=== PATIENT | male | born 1965 | race Caucasian/White ===

== ENCOUNTER 2017-10-10 14:14 | Inpatient (IN) | payer OTHER ==
[~2017-10-10] VITALS: Ht 170.2 cm; Wt 72.6 kg
[2017-10-10 17:06] LABS: *AMPHETAMINE, URINE NEGATIVE (NEGATIVE); *BARBITURATE, URINE NEGATIVE (NEGATIVE); *CANNABINOID, URINE NEGATIVE (NEGATIVE); *COCCAINE, URINE NEGATIVE (NEGATIVE); *OPIATE, URINE NEGATIVE (NEGATIVE); *PHENCYCLIDINE SCREEN,URINE NEGATIVE (NEGATIVE)
--- NOTE | 2017-10-10 17:15 | NUR ---
Pre-admission assessment performed in the intake department of [facility]. Pt admitted for medically supervised ETOH withdrawal. Pt is A&O and ambulatory with a steady gait. Pt appears slightly intoxicated, some slurred speech. He is able to answers questions appropriately. Vitals: 151/91, HR 94, RR 18, O2 sat 98%, T 98.0, pain 0/10. Pt is anxious, flushed face, disheveled and blood shot eyes. Pt is stable and admission is to continue on the [facility]. Denies seizure history and Pt reports NKA.
[2017-10-10] MEDS ORDERED: LORAZEPAM 1 MG TABLET PO PRN ×2 (17:30)
[2017-10-10] MEDS ORDERED: LOPERAMIDE HCL 2 MG CAPSULE PO PRN ×2 (17:30)
[2017-10-10] MEDS ORDERED: diphenhydrAMINE 50 MG CAPSULE PO PRN (17:30)
[2017-10-10] MEDS ORDERED: MAG HYDROX/AL HYDROX/SIMETH 30 ML LIQUID UDC PO PRN (17:30)
[2017-10-10] MEDS ORDERED: ACETAMINOPHEN 325 MG TABLET PO PRN (17:30)
[2017-10-10] MEDS ORDERED: LORAZEPAM 2 MG/1 ML VIAL IM PRN (17:30)
[2017-10-10] MEDS ORDERED: ONDANSETRON 4 MG/2 ML VIAL IM PRN (17:30)
[2017-10-10] MEDS ORDERED: MAGNESIUM HYDROXIDE 30 ML LIQUID UDC PO PRN (17:30)
[2017-10-10] MEDS ORDERED: MIRALAX 17 GM POWD.PACK PO PRN (17:30)
[2017-10-10] MEDS ORDERED: THIAMINE HCL 200 MG/2 ML VIAL IM ONE (17:30)
--- NOTE | 2017-10-10 17:40 | NUR ---
ADMISSION Pt is a 52 y/o male who arrived on the [facility] at 1733. Body check performed by TACK MAKER and skin check performed by the nurse. Pt was oriented to the unit and shown to his room. Pt is A&O and ambulatory with a steady gait. He has NKA, is full code status, and on a regular diet. Pt is 5'7", weight 150 pounds. Lung sounds clear, PERRLA, bowel sounds present, heart rhythm regular, skin is intact. Last BM was this morning. Pt has been drinking 8 cans of beer daily for 22 years. Pt began drinking ETOH at age [age]. His last drink was 7 beers today at 1530 prior to admission. Pt reports he drinks because he is bored and has too much time to himself. He wants to get sober because his family and girlfriend encouraged him. Possible triggers for relapse are too much time with nothing to do and his mother bothers him. He lives with his mother. Barriers for staying sober are lack of activities and isolation. Pt tried to get sober two times. In 1997 at [facility] and 2014 at [facility]. His longest period of sobriety was 3 months in 2014. Withdrawal symptoms typically include are anxiety, sweating, and joint pain. Pt decided to come to treatment today because "It's time". Pt denies c/o suicidal ideations or homicidal ideations. No history of psychiatric admissions or suicide attempts. No history of seizures or withdrawal induced deliriums. His primary care physician is Dr. Cm. H- insomnia. Otherwise healthy. Pt daily medications are Trazodone 150 mg PO QHS and Gabapentin 500 mg Po QHS. He was educated regarding use of the call light and all questions answered. All safety measures in place, bed low locked position, side rails up X2, Fall Precautions.
--- NOTE | 2017-10-10 18:07 | NUR ---
weight 160 pounds. Admitting CIWA 3
[2017-10-10] MEDS ORDERED: TRAZ-182 PO (18:11)
[2017-10-10] MEDS ORDERED: GABA600T2 PO (18:11)
[2017-10-10] MEDS ORDERED: PANT40TA4 PO (18:11)
[2017-10-10] MEDS ORDERED: ASPI-973 PO (18:16)
--- NOTE | 2017-10-10 18:31 | NUR ---
End of shift No withdrawal changes since admission. Admission assessment completed. CIWA 3. Pt reports NKA, Full Code and regular diet. All safety measures in place. Bed low, locked position, side rails upx2, call light is within reach. Will continue to monitor for withdrawal symptoms. Will endorse to PM shift.
--- NOTE | 2017-10-10 19:30 | NUR ---
START OF SHIFT Pt is a 52 y/o male admitted on 10/10/17 for ETOH withdrawal. Pt will start a 5 day Ativan taper tomorrow, has PRN Ativan available at this time. Last CIWA 3. Upon rounds Pt is A&O x 4 and presents with anxiety, agitation, intermittent nausea, tremors, flushed skin, restlessness, poor eye contact, slumped posture and difficulty falling and staying asleep. Medications due. Safety measures in place. Call light within reach. Will continue to monitor.
[2017-10-10] MEDS: CLONIDINE HCL 0.1 MG TABLET PO PRN (19:49)
[2017-10-10] MEDS: ONDANSETRON ODT 4 MG TAB.RAPDIS SL PRN (19:50)
--- NOTE | 2017-10-10 19:50 | NUR ---
PRN CLONIDINE AND ZOFRAN ADMINISTRATION Pt presents with B/P of 150/88 and complains of nausea. Medication given. Safety measures in place. Call light within reach. Will continue to monitor.
[2017-10-10 20:00] VITALS: BP 150/88
--- NOTE | 2017-10-10 20:00 | NUR ---
CIWA 14 Pt presents with intermittent nausea, tremors, flushed skin, moderate anxiety, and moderate agitation. Safety measures in place. Call light within reach. Will continue to monitor.
[2017-10-10 20:31] LABS: BASOPHILS # (AUTO) 0.1 K/uL (0.0-8.0); BASOPHILS % (AUTO) 1.1 % (0.0-2.0); EOSINOPHILS # (AUTO) 0.6 K/uL (0.0-0.7); EOSINOPHILS % (AUTO) 5.4 % (0.0-7.0); HEMATOCRIT 42.5 % (36.7-47.1); LYMPHOCYTES # (AUTO) 2.6 K/uL (20.0-40.0); LYMPHOCYTES % (AUTO) 24.8 % (20.5-51.5); MEAN CORPUSCULAR HEMOGLOBIN 34.7 uug (23.8-33.4); MEAN CORPUSCULAR HGB CONC 35 g/dL (32.5-36.3); MEAN CORPUSCULAR VOLUME 98.2 fL (73.0-96.2); MONOCYTES # (AUTO) 0.9 K/uL (2.0-10.0); MONOCYTES % (AUTO) 8.9 % (0.0-11.0); NEUTROPHILS # (AUTO) 6.3 K/uL (1.8-8.9); NEUTROPHILS % (AUTO) 59.8 % (38.5-71.5); PLATELET COUNT (AUTO) 205 K/uL (152-348); RED BLOOD CELL COUNT(AUTO) 4.33 MIL/uL (4.06-5.63); WHITE BLOOD COUNT (AUTO) 10.5 K/uL (3.6-10.2)
[2017-10-10 20:32] LABS: ETHANOL < 3 MG/DL (0-0)
[2017-10-10 20:37] LABS: ALANINE AMINOTRANSFERASE 95 U/L (16-63); ALKALINE PHOSPHATASE 97 U/L (50-136); AMYLASE 64 U/L (25-115); ASPARTATE AMINOTRANSFERASE 114 U/L (15-37); BILIRUBIN,TOTAL 1.5 mg/dL (0.2-1.0); CARBON DIOXIDE 24 mmol/L (21-32); CHLORIDE 98 mmol/L (98-107); CREATININE 0.9 mg/dL (0.6-1.3); GLUCOSE 104 mg/dL (74-106); LIPASE 109 U/L (73-393); MAGNESIUM 2.1 mg/dL (1.8-2.4); POTASSIUM 3.1 mmol/L (3.5-5.1); TOTAL PROTEIN, SERUM 8.3 g/dL (6.4-8.2); UREA NITROGEN, BLOOD 5 mg/dL (7-18)
[2017-10-10 20:48] LABS: THYROID STIMULATING HORMONE 2.427 mIU/mL (0.358-3.740)
[2017-10-10] MEDS ORDERED: TRAZODONE 100 MG TABLET PO ONE (21:00)
[2017-10-10] MEDS: GABAPENTIN 300 MG CAPSULE PO SCH (21:07)
--- NOTE | 2017-10-10 21:08 | NUR ---
PRN ATIVAN 1 MG AND TYLENOL ADMINISTRATION Pt complaining of anxiety, restlessness, tremors, and headache 06/15. CIWA 14. Medications given. Safety measures in place. Call light within reach. Will continue to monitor.
[2017-10-10] MEDS ORDERED: POTASSIUM CHLORIDE 20 MEQ TAB.PRT.SR PO ONE (21:30)
--- NOTE | 2017-10-10 21:50 | NUR ---
PRN CLONIDINE AND ZOFRAN REASSESSMENT Pt stated the nausea has improved and feels better. Zofran noted effective. Pt's B/P 154/91. Pt stated that he is anxious, agitated, and restless. Clonidine noted not effective, charge nurse notified.
--- NOTE | 2017-10-10 22:08 | NUR ---
PRN ATIVAN 1MG AND TYLENOL REASSESSMENT Pt found in bed with eyes closed. Pt's respirations are even and unlabored. CIWA 6. Medications noted effective. Safety measures in place. Call light within reach. Will continue to monitor.
[2017-10-11] VITALS: BP 96/61
--- NOTE | 2017-10-11 | NUR ---
CIWA 8 Pt presents with intermittent nausea, tremors, flushed skin, moderate anxiety, and moderate agitation. Safety measures in place. Call light within reach. Will continue to monitor.
--- NOTE | 2017-10-11 04:00 | NUR ---
CIWA DEFERRED AND V/S REFUSED Pt laying in bed with eyes closed, respirations even and unlabored. CIWA deferred. V/S refused. Safety measures in place. Call light within reach. Will continue to monitor.
--- NOTE | 2017-10-11 06:58 | NUR ---
PRN IMODIUM ADMINISTRATION Pt stated he has 1 bout of diarrhea. Medication was administered. Safety measures in place. Call light within reach. Will endorse to morning nurse.
--- NOTE | 2017-10-11 07:13 | NUR ---
END OF SHIFT Pt is a 52 y/o male admitted on 10/10/17 for ETOH withdrawal. Pt will start a 5 day Ativan taper today. Pt presented with anxiety, agitation, intermittent nausea, tremors, flushed skin, restlessness, elevated blood pressure, elevated heart rate, poor eye contact, slumped posture, difficulty falling and staying asleep and 1 bout of diarrhea. PRN Ativan, Neurontin, Imodium, Clonidine, Tylenol, and Zofran ODT was administered, effective in S/S of withdrawal AEB Pt sleeping 9.5 hours . Also 40 mEq of K-Dur was administered d/t K of 3.1. Last CIWA 8. Pt slept 9.5 hours. Intake 855 ml, void 2, stool 0. Safety measures in place. Call light within reach. Pt's needs have been met.
--- NOTE | 2017-10-11 07:40 | NUR ---
START OF SHIFT NOTE Received report from night nurse, 52 year old male admitted for ETOH withdrawal. Patient ordered to be start Ativan taper today. Per endorsement patient received PRN Ativan 1mg, Tylenol, Robaxin, Clonidine, Zofran, Imodium effective per night nurse, Last CIWA -8, slept for 9 hours. Received patient alert awake anxious, agitated, restless bilateral hand tremors noted. Educated patient regarding the importance of attending groups activities. Patient verbalized understanding. All safety measures in place, Call light within reach. Will cont to monitor.
[2017-10-11 08:00] VITALS: BP 147/93
--- NOTE | 2017-10-11 08:00 | NUR ---
CIWA ASSESSMENT Patient is alert awake oriented x4 presented with anxiety, agitation, restless, bilateral hand tremors, light headed. sweats, CIWA score noted 13. Patient is due for schedule medications. Will cont to monitor and reassess.
[2017-10-11] MEDS: THIAMINE HCL 100 MG TABLET PO SCH (08:55)
[2017-10-11] MEDS: FOLIC ACID 1 MG TABLET PO SCH (08:55)
[2017-10-11] MEDS: LORAZEPAM 1 MG TABLET PO SCH ×4 (08:55→20:51)
[2017-10-11] MEDS: MULTIVITAMINS,THERAPEUTIC TABLET PO SCH (08:55)
[2017-10-11] MEDS ORDERED: TUBERCULIN,PURIF.PROT.DERIV. 5 TU/0.1 ML TEST ID ONE (09:00)
[2017-10-11] MEDS ORDERED: 5 DAY TAPER OF LORAZEPAM -SERENITY PROTOCOL PO PRN (09:00)
--- NOTE | 2017-10-11 10:00 | NUR ---
CLARIFICATION DRINKING HISTORY Patient stated for the past 2 and half years he is been drinking 8-10 beers from Wednesday to , and 12 to 14 on Wednesday, Wednesday and Wednesday. Patient started drinking at age of [age] year old. Patient has been drinking daily since that time expect 3 periods of sobriety the longest been 6 months. The most recent period of sobriety was in 2014 for 3 months. For most of his drinking history he been drinking 8-10 beers daily for 4-6 months. Many years ago had a history of drinking hard liquor (Vodka 90to 100ml). Patient states" The reason for relapse is hearing the people talking about drinking and using drugs at AA meeting. At the meeting people told me i was not drinking a lot after hearing that i started drinking more on the weekends. " Patient stated he wants to get sober this time because its really affecting his work and a lot of new project is coming and he is very excited for it. Per patient he has a fridge in this office with beer in it and that leads him to drink at work. Patient states he is going to tell his work that take the fridge out from his office.Patient States he wants to stay sober for his girlfriend and specially for his health.
[2017-10-11] MEDS: PANTOPRAZOLE SODIUM 40 MG TABLET.DR PO SCH (11:47)
[2017-10-11 12:00] VITALS: BP 142/91
--- NOTE | 2017-10-11 12:00 | NUR ---
CIWA ASSESSMENT Patient is alert awake oriented x4 presented with anxiety, agitation, restless, bilateral hand tremors, pacing in the hallway. sweats, CIWA score noted 14. Patient is due for schedule medications. Will cont to monitor and reassess.
[2017-10-11 16:00] VITALS: BP 141/89
--- NOTE | 2017-10-11 16:00 | NUR ---
CIWA ASSESSMENT Patient continues presented with anxiety, agitation, restless, anhedonia, bilateral hand tremors, sweats, CIWA score noted 14. Patient is due for schedule medications. Will cont to monitor and reassess.
--- NOTE | 2017-10-11 19:03 | NUR ---
END OF SHIFT NOTE Gave report to night nurse, patient admitted for ETOH and started his Ativan taper this morning tolerating well. Patient presented with anxiety, agitation, restless, sweats, bilateral hand tremors. Patient continues with Ativan taper tolerating well. During shift patient did not receive any PRN'S, PPD was given on LFA no s/s of bleeding no swelling noted. Skin intact warm and dry to touch. Encourage patient to attend group activities to learn new coping skills. Patient verbalized understanding. Encourage PO fluids as tolerated. All safety measures in place, Call light within reach. Patient endorsed to night nurse in stable condition.
--- NOTE | 2017-10-11 19:30 | NUR ---
Start of shift note Received report from day shift Nurse. Patient is a 52 year old male admitted for ETOH withdrawal. Patient is on 5 day Ativan taper,started today. PPD given on left forearm. Patient did not require PRN medication. Last CIWA 13. Patient alert and oriented x 4. Respiration even and unlabored. Room smell . Patient presents with flat affect, depressed mood, worried, flushed face, anxious, headache 4/10, both feet aching 8/10, back pain, restless legs, intermittent perspiration and diarrhea. Safety measures in place. Call light in reach. Will continue to monitor
[2017-10-11 20:00] VITALS: BP 140/92
--- NOTE | 2017-10-11 20:00 | NUR ---
CIWA assessment Patient presents flushed face, anxious, restless, worried, headache 4/10, both feet aching 8/10, back pain, restless legs, intermittent perspiration and diarrhea. CIWA 13.
[2017-10-11] MEDS: IBUPROFEN 600 MG TABLET PO PRN (20:51)
[2017-10-11] MEDS: GABAPENTIN 300 MG CAPSULE PO SCH (20:51)
--- NOTE | 2017-10-11 20:51 | NUR ---
PRN Motrin administration Patient c/o generalized body aches. Will monitor for effectiveness
[2017-10-11] MEDS: TRAZODONE 100 MG TABLET PO SCH (20:52)
--- NOTE | 2017-10-11 21:51 | NUR ---
PRN Motrin re-assessment Patients states Motrin is helpful and effective. Pain is tolerable at this time
[2017-10-12] VITALS: BP 123/68
--- NOTE | 2017-10-12 | NUR ---
CIWA deferred Patient in bed with eyes closed, snoring. Respiration even and unlabored. Will continue to monitor.
[2017-10-12 04:00] VITALS: BP 119/75
--- NOTE | 2017-10-12 04:00 | NUR ---
CIWA deferred Patient lying in bed with eyes closed. Respiration even and unlabored. Will continue to monitor
[2017-10-12] MEDS: PANTOPRAZOLE SODIUM 40 MG TABLET.DR PO SCH (06:34)
--- NOTE | 2017-10-12 07:15 | NUR ---
End of shift note Patient slept 7 hours .Fluid intake 1,092 ml. Voided x 2. BM x 3 . Monitored patient throughout shift. Scheduled medication and taper given as ordered, tolerated well and no adverse reaction. Patient alert and oriented x 4. Respiration even and unlabored. Room smell . Patient presents with flat affect, depressed mood, worried, flushed face, anxious, headache 4/10, both feet aching 8/10, back pain, restless legs, intermittent perspiration and diarrhea. Encouraged fluids. Patiend had diarrhea but does not want PRN imodium. Patient was given PRN motrin and effective. Safety measures in place. Call light in reach. Will continue to monitor. Last .
--- NOTE | 2017-10-12 07:30 | NUR ---
START OF SHIFT NOTE Received report from night nurse, 52 year old male admitted for ETOH withdrawal. Patient continues with Ativan taper tolerating well. Per endorsement patient received PRN Motrin effective per night nurse, Last , slept for 7 hours. Received patient alert awake oriented x4, light headed, anxious, agitated, restless, diaphoresis, bilateral hand tremors noted. Educated patient regarding the importance of attending groups activities. Patient verbalized understanding. All safety measures in place, Call light within reach. Will cont to monitor.
[2017-10-12 08:00] VITALS: BP 134/94
--- NOTE | 2017-10-12 08:00 | NUR ---
CIWA ASSESSMENT Patient is alert awake oriented x4 presented with anxiety, agitation, restless, bilateral hand tremors, light headed, sweats, fatigue, CIWA score noted 13. Patient is due for schedule medications. Will cont to monitor and reassess.
[2017-10-12 08:06] LABS: HEPATITIS B SURFACE AG Negative (Negative)
[2017-10-12] MEDS: MULTIVITAMINS,THERAPEUTIC TABLET PO SCH (08:14)
[2017-10-12] MEDS: FOLIC ACID 1 MG TABLET PO SCH (08:15)
[2017-10-12] MEDS: LORAZEPAM 1 MG TABLET PO SCH ×3 (08:15→20:35)
[2017-10-12] MEDS: THIAMINE HCL 100 MG TABLET PO SCH (08:15)
[2017-10-12 08:59] LABS: BILIRUBIN,TOTAL 0.5 mg/dL (0.2-1.0); POTASSIUM 3.8 mmol/L (3.5-5.1); TOTAL PROTEIN, SERUM 7.2 g/dL (6.4-8.2)
[2017-10-12 12:00] VITALS: BP 142/82
--- NOTE | 2017-10-12 12:00 | NUR ---
CIWA ASSESSMENT Patient continues to exhibit with anxiety, agitation, restless, bilateral hand tremors, light headed, sweats, fatigue, CIWA score noted 14. Patient is due for schedule medications. Will cont to monitor and reassess.
--- NOTE | 2017-10-12 13:43 | NUR ---
Client was prompted to attend group therapy sessions.
[2017-10-12 16:00] VITALS: BP 138/92
--- NOTE | 2017-10-12 16:00 | NUR ---
CIWA ASSESSMENT Patient came back from groups and continues to exhibit with anxiety, agitation, restless, bilateral hand tremors, light headed, patient reported decreased in sweats, fatigue, CIWA score noted 13. Will cont to monitor and reassess.
--- NOTE | 2017-10-12 19:17 | NUR ---
END OF SHIFT NOTE Gave report to night nurse, Patient is alert oriented x4 admitted for ETOH withdrawal and continues with Ativan taper tolerating well. Patient presented with anxiety, agitation, restless, flat affect, flushed face, patient was given scheduled medications and no PRN'S were given during shift. Patient did not have any episode of diarrhea during shift. Patient able to consumed 100% of his meals, encourage PO fluids as tolerated. All safety measures in place. Patient endorsed to night nurse in stable condition.
--- NOTE | 2017-10-12 19:30 | NUR ---
Start of shift note Received report from day shift Nurse. Patient is a 52 year old male admitted for ETOH withdrawal. Patient continue on Ativan taper. Patient did not require PRN medication . Last CIWA 13. Patient alert and oriented x 4. Patient presents with flat affect, anxiety, flushed face, abdominal cramping, restless legs, diarrhea, sweating , bilateral hand tremors and pain on back , ankle and legs. Encourage fluids. Safety measures in place. Call light in reach. Will continue to monitor.
[2017-10-12 20:00] VITALS: BP 147/98
--- NOTE | 2017-10-12 20:00 | NUR ---
CIWA assessment Patient presents with flat affect, anxiety, flushed face, abdominal cramping, restless legs, diarrhea, sweating , bilateral hand tremors , nausea and pain on back , ankle and legs. CIWA 13
[2017-10-12] MEDS: GABAPENTIN 300 MG CAPSULE PO SCH (20:35)
[2017-10-12] MEDS: TRAZODONE 100 MG TABLET PO SCH (20:35)
[2017-10-12] MEDS: DICYCLOMINE HCL 20 MG TABLET PO PRN (20:36)
[2017-10-12] MEDS: ONDANSETRON ODT 4 MG TAB.RAPDIS SL PRN (20:36)
--- NOTE | 2017-10-12 20:36 | NUR ---
PRN Bentyl and Zofran assessment Patient c/o abdominal cramping and nausea.Will monitor for effectiveness
--- NOTE | 2017-10-12 21:06 | NUR ---
PRN Zofran re-assessment Patient states Zofran helpful and effective. Nausea ceased.
--- NOTE | 2017-10-12 21:36 | NUR ---
ANTONELLA Jaimes re-assessment Patient states he feels much better, abdominal cramping subsided.
[2017-10-13] VITALS: BP 121/88
--- NOTE | 2017-10-13 | NUR ---
CIWA deferred Patient lying in bed with eyes closed. Respiration even and unlabored. Will continue to monitor
[2017-10-13 04:00] VITALS: BP 120/78
--- NOTE | 2017-10-13 04:00 | NUR ---
CIWA assessment Patient presents with anxiety, restlessness, tremors, sweating , abdominal cramping and restless legs. CIWA 10.
[2017-10-13] MEDS: DICYCLOMINE HCL 20 MG TABLET PO PRN (04:43)
[2017-10-13] MEDS: IBUPROFEN 600 MG TABLET PO PRN (04:43)
--- NOTE | 2017-10-13 04:43 | NUR ---
PRN Motrin and Bentyl administration Patient c/o restless legs and abdominal cramping. Will monitor for effectiveness
--- NOTE | 2017-10-13 05:43 | NUR ---
PRN Derrick and Fiona re-assessment Patient lying in bed with eyes closed. Respiration even and unlabored. No facial grimacing. Will continue to monitor
[2017-10-13] MEDS: PANTOPRAZOLE SODIUM 40 MG TABLET.DR PO SCH (06:25)
--- NOTE | 2017-10-13 07:12 | NUR ---
End of shift note Patient slept 5 hours. Fluid intake of 1,592 ml. Voided x 2. BM x 1. Scheduled medication and taper given as ordered, tolerated well and no adverse reaction. Patient was c/o restless legs, nausea, abdominal cramping and anxiety. PRN Motrin, Zofran, Bentyl x 2. Patient with flat affect and depressed mood. Patient compliant medication and treatment plan. Safety measures in place. Call light in reach. Will continue to monitor. Last CIWA 10.
--- NOTE | 2017-10-13 07:40 | NUR ---
START OF SHIFT NOTE Received report from night nurse, 52 year old male admitted for ETOH withdrawal. Patient continues with Ativan taper tolerating well. Per endorsement patient received PRN Motrin, Zofran, Bentyl x2, effective per night nurse, Last CIWA -, slept for 5 hours. Received patient alert awake oriented x4, anxious, agitated, restless, bilateral hand tremors noted. Educated patient with current plan of the day and his medications regimen. Patient verbalized understanding. All safety measures in place, Call light within reach. Will cont to monitor.
[2017-10-13 08:00] VITALS: BP 139/89
--- NOTE | 2017-10-13 08:00 | NUR ---
CIWA ASSESSMENT CIWA score noted 13. Patient presented with anxiety, agitation, restless, bilateral hand tremors, light headed, restless legs, muscle spasms. Patient due for scheduled medications. Will cont to monitor and reassess.
[2017-10-13] MEDS: MULTIVITAMINS,THERAPEUTIC TABLET PO SCH (08:27)
[2017-10-13] MEDS: THIAMINE HCL 100 MG TABLET PO SCH (08:27)
[2017-10-13] MEDS: LORAZEPAM 1 MG TABLET PO SCH ×4 (08:27→20:51)
[2017-10-13] MEDS: FOLIC ACID 1 MG TABLET PO SCH (08:27)
[2017-10-13 12:00] VITALS: BP 150/91
--- NOTE | 2017-10-13 12:00 | NUR ---
CIWA ASSESSMENT CIWA score noted 14. Patient continues to exhibited s/s of withdrawal such as anxiety, agitation, restless, bilateral hand tremors, light headed, restless legs, nausea. Scheduled medication was given. Will cont to monitor.
--- NOTE | 2017-10-13 13:11 | NUR ---
Client was prompted to attend twice daily group therapy sessions and client agreed to do so.
[2017-10-13 16:00] VITALS: BP 147/94
--- NOTE | 2017-10-13 16:00 | NUR ---
CIWA ASSESSMENT CIWA score noted 12. Patient continues to exhibited s/s of withdrawal such as anxiety, agitation, restless, bilateral hand tremors, per patient nausea improved and light headed decreased. Scheduled medication was given. Will cont to monitor.
--- NOTE | 2017-10-13 16:00 | NUR ---
MD Communication Pt's PPD is >10mm. He is asymptomatic and stated that he received the TB vaccine when he was younger. made aware. New orders for chest x-ray.
[2017-10-13 17:03] LABS: CREATININE 0.9 mg/dL (0.6-1.3); POTASSIUM 4.4 mmol/L (3.5-5.1)
[2017-10-13 17:08] LABS: *BILIRUBIN,URIN NEGATIVE (NEGATIVE); *BLOOD, URINE NEGATIVE (NEGATIVE); *CLARITY,URINE CLEAR (CLEAR); *COLOR,URINE YELLOW (YELLOW); *KETONES,URINE NEGATIVE (NEGATIVE); *PROTEIN,URINE NEGATIVE (NEGATIVE); *UROBILINOGEN,URINE 0.2 E.U./dl (NORMAL); LEUKOCYTE ESTERASE ,URINE NEGATIVE (NEGATIVE); NITRITE, URINE NEGATIVE (NEGATIVE); UGLUCOSE NEGATIVE (NEGATIVE)
[2017-10-13 18:18] LABS: WBC,URINE 0-3 /HPF (0-3)
--- NOTE | 2017-10-13 19:00 | NUR ---
START OF SHIFT NOTE The patient, 52 year old male, admitted for Alcohol withdrawal, continues 5 day Ativan taper, today is day #4. The patient tolerated well. The patient is alert, and oriented x4, cooperative, with clear, soft speech, and steady gait. The most recent CIWA=12 at 1600. Throughout the day the patient experienced withdrawal symptoms such as anxiety, agitation, irritability, nervousness, headache, nausea, tremors, sweating, restlessness, and fatigue, per day shift nurse report. Encouraged increased oral fluids as tolerated. Encouraged to attending group activities. Safe and calm environment provided. All needs met. Safety measures: Call light within reach, bed locked in lowest position, padded bed rails up x2. The patient endorsed by day shift nurse. Will continue to monitor closely. endorsed by day shift nurse. Will continue to monitor closely.
--- NOTE | 2017-10-13 19:00 | NUR ---
END OF SHIFT NOTE Gave report to night nurse, Patient is alert oriented x4 admitted for ETOH withdrawal and continues with Ativan taper tolerating well. Patient presented with anxiety, agitation, restless, flat affect, light headed,unkempt,sweats. Patient was given scheduled medications and no PRN'S were given during shift. Patient able to consumed 100% of his meals, encourage PO fluids as tolerated for hydration. Patient noted interacting with peers and attending groups activities. All safety measures in place. Patient endorsed to night nurse in stable condition.
[2017-10-13 20:00] VITALS: BP 134/89
--- NOTE | 2017-10-13 20:00 | NUR ---
CIWA ASSESSMENT CIWA=11 at 2000: The patient presented with anxiety, agitation, irritability, tremors, body aches, sweating, restlessness, and fatigue. Scheduled medications will be administrated as ordered. Safe and calm environment with minimized noises was provided. All needs met. Safety measures: Call light within reach, bed locked in the lowest position, and padded rails up x2. Withdrawal symptoms will be monitoring closely.
[2017-10-13] MEDS: TRAZODONE 100 MG TABLET PO SCH (20:51)
[2017-10-13] MEDS: GABAPENTIN 300 MG CAPSULE PO SCH (20:51)
[2017-10-14] VITALS: BP 102/56
--- NOTE | 2017-10-14 | NUR ---
CIWA ASSESSMENT CIWA=10 at 0000. The patient experienced withdrawal symptoms such as anxiety, agitation, irritability, nervousness, sweating, tremors, body aches, restlessness, and fatigue. Scheduled medications will be administrated as ordered. Safe and calm environment with minimized noises was provided. All needs met. Safety measures: Call light within reach, bed locked in the lowest position, and padded rails up x2. Withdrawal symptoms will be monitoring closely.
[2017-10-14 04:00] VITALS: BP 112/63
--- NOTE | 2017-10-14 04:00 | NUR ---
CIWA ASSESSMENT CIWA=9 at 0400: The patient experienced anxiety, agitation, irritability, tremors, body aches, sweating, restlessness,and fatigue. Safe and calm environment with minimized noises was provided. All needs met. Safety measures: Call light within reach, bed locked in the lowest position, and padded rails up x2. Withdrawal symptoms will be monitoring closely.
[2017-10-14] MEDS: PANTOPRAZOLE SODIUM 40 MG TABLET.DR PO SCH (06:14)
--- NOTE | 2017-10-14 07:00 | NUR ---
END OF SHIFT NOTE Endorsed patient, 52 year old male, is alert, and oriented x4, cooperative, with clear, soft speech, and steady gait. The patient continues 5 day Ativan taper, today is day #5, ordered for Alcohol withdrawal, tolerated well. The patient remains compliant with treatment, medications, and diet regime. Initial CIWA=11 at 2000, CIWA=10 at 0000. The most recent CIWA=9 at 0400. The patient experienced anxiety, agitation, irritability, nervousness, body aches, headache, tremors, sweating, restlessness, and fatigue. No PRN Medications administrated due my shift. Encouraged increased oral fluids as tolerated. Encouraged to attending group activities. Safe and calm environment provided. Patient slept for 7 hours, intake1,092 ml, voided x2. All needs met. Safety measures in the place by hospital policy: Call light within reach, bed in the lowest position and locked, padded rails up x2. Patient endorsed to day shift nurse in stable condition, report given.
--- NOTE | 2017-10-14 07:40 | NUR ---
START OF SHIFT Pt is a 52 yr old male, AA&Ox4. Pt was admitted on 10/10/17 for ETOH withdrawal and is on 5 day Ativan taper as ordered. Received report from manufacturing shift supervisor nurse. No PRN's were given during the night. Last CIWA score was 9 and pt slept for 7 hrs. Pt is currently c/o anxiety. Pt is noted restless and insisting on going to the smoking patio to smoke. Facial redness is noted. Skin is intact. warm and moist to touch. Pt was encouraged increase fluid for hydration. Safety precautions observed. Call light is within reach. Will continue to monitor.
[2017-10-14 08:05] VITALS: BP 136/93
[2017-10-14] MEDS: FOLIC ACID 1 MG TABLET PO SCH (08:58)
[2017-10-14] MEDS: LORAZEPAM 1 MG TABLET PO SCH ×3 (08:58→21:20)
[2017-10-14] MEDS: MULTIVITAMINS,THERAPEUTIC TABLET PO SCH (08:58)
[2017-10-14] MEDS: THIAMINE HCL 100 MG TABLET PO SCH (08:58)
--- NOTE | 2017-10-14 09:15 | NUR ---
CIWA 10 Pt is noted with anxiety, agitation, restlessness and facial sweats. Pt states of feeling nervous. CIWA score was 10. Ativan 1mg PO was given as scheduled at 0900, medication roberto well. Encouraged increase fluid intake for hydration. Will continue to monitor.
[2017-10-14 12:00] VITALS: BP 149/98
--- NOTE | 2017-10-14 12:00 | NUR ---
CIWA 9 Pt is noted with anxiety, agitation, restlessness and facial sweats. Pt is noted with constantly going down to smoke. CIWA score was 9. Encouraged increase fluid intake for hydration. Will continue to monitor.
[2017-10-14 16:00] VITALS: BP 157/94
--- NOTE | 2017-10-14 16:43 | NUR ---
PRN GIVEN Pt is c/o constipation. Miralax 17gm was given PO PRN and mix with prune juice to help with constipation. Medication roberto well. Encouraged increase fluid intake. Will continue to monitor.
--- NOTE | 2017-10-14 17:11 | NUR ---
CIWA 9 Pt is noted with anxiety, agitation, restlessness and facial sweats. Pt states of feeling nervous. Pt is noted with constantly going down to smoke. CIWA score was 9. Encouraged increase fluid intake for hydration. Will continue to monitor.
--- NOTE | 2017-10-14 19:02 | NUR ---
END OF SHIFT Pt is a 52 yr old male, AA&Ox4. Pt was admitted on 10/10/17 for ETOH w/d and is on 5 day Ativan taper as ordered, medication roberto well. Pt has been cooperative with medication regimen and plan of care. Pt was observed attending group therapy. Pt was c/o anxiety, agitation, chills, sweats, and muscle aching. Pt is noted with facial redness and sweats. Pt is c/o constipation, Miralax PO PRN was given at 1643. Pt denies any episodes of BM. Pt was encouraged increase fluid for hydration. Last CIWA score was 9 at 1600. Safety precautions observed. Endorsed to restaurant shift supervisor nurse to continue with care.
--- NOTE | 2017-10-14 19:30 | NUR ---
Start of Shift Patient received. Patient is noted in the activities room participating in a group meeting. Patient continues on a modified Ativan taper. Patient was noted to verbalize increased feelings of constipation. PRN Miralax administered. No BM noted. Last noted CIWA 9. Upon rounds patients room is noted to be disheveled and unkept. Multiple bottles of water and snacks noted throughout bedside table. Will continue to monitor.
[2017-10-14 20:30] VITALS: BP 140/95
[2017-10-14] MEDS: GABAPENTIN 300 MG CAPSULE PO SCH (21:19)
[2017-10-14] MEDS: DICYCLOMINE HCL 20 MG TABLET PO PRN (21:20)
[2017-10-14] MEDS: TRAZODONE 100 MG TABLET PO SCH (21:20)
[2017-10-14] MEDS: IBUPROFEN 600 MG TABLET PO PRN (21:20)
--- NOTE | 2017-10-14 21:20 | NUR ---
PRN Medication Administration Patient noted verbalizing increased stomach cramps and pain 6/10 due to headache. Patient is able to verbalize PRN Miralax was noted to be effective. PRN Bentyl and Motrin administered. Will continue to monitor.
--- NOTE | 2017-10-14 22:20 | NUR ---
PRN Medication Reassessment Patient is noted in bed sleeping. Breathing even and non labored. No signs of restlessness or discomfort noted. No facial grimacing noted. PRN Bentyl and Motrin noted to be effective. Will continue to monitor.
[2017-10-15 00:25] VITALS: BP 126/79
[2017-10-15 04:53] VITALS: BP 116/74
[2017-10-15] MEDS: PANTOPRAZOLE SODIUM 40 MG TABLET.DR PO SCH (06:22)
--- NOTE | 2017-10-15 06:59 | NUR ---
End of Shift Patient is noted in bed with his eyes closed. Breathing even and non labored. No signs of restlessness or discomfort noted. patient is continues on a modified Ativan taper. He received PRN Bentyl and Motrin with medications noted to be effective. Last noted CIWA 13. Patient noted to sleep a total of 8 hours. All needs attended to promptly. Will endorse to continue plan of care as ordered.
--- NOTE | 2017-10-15 07:30 | NUR ---
Start of Shift Farm Or Ranch Animal Caretaker received report on 52 year old male admitted to [facility] on 10/10/17 for medical management of ETOH withdrawals. Pt endorse NKA, full code and regular diet. Denies any PMH with a PPH of insomnia. Pt with no reported history of seizures. Pt is currently on an Ativan taper with last CIWA 13 per NOC report. Pt was administered Bentyl(stomach cramps) and Motrin(pain) on NOC for PRN medications. Farm Or Ranch Animal Caretaker encounters pt in pt's room, pt is resting with eyes closed and rise and fall of chest noted. Even and unlabored respirations. Bed in low position with wheels locked and side rails up x2. Will continue to monitor, support and encourage according to plan of care.
--- NOTE | 2017-10-15 08:00 | NUR ---
CIWA 12 Pt is tremulous, anxious, restless with moist skin and complains of nausea. Pt with a flat affect and depressed mood. Will continue to monitor, support and encourage according to plan of care
[2017-10-15 08:26] VITALS: BP 132/94
[2017-10-15] MEDS: FOLIC ACID 1 MG TABLET PO SCH (08:43)
[2017-10-15] MEDS: MULTIVITAMINS,THERAPEUTIC TABLET PO SCH (08:43)
[2017-10-15] MEDS: LORAZEPAM 1 MG TABLET PO SCH ×2 (08:43→20:38)
[2017-10-15] MEDS: THIAMINE HCL 100 MG TABLET PO SCH (08:43)
[2017-10-15 12:00] VITALS: BP 145/93
--- NOTE | 2017-10-15 12:00 | NUR ---
CIWA 10 Pt is tremulous with moist skin. Pt is anxious and restless. Pt with a blunted affect and depressed mood. Pt is quiet and withdrawn. Will continue to monitor, support and encourage according to plan of care.
[2017-10-15] MEDS: CLONIDINE HCL 0.1 MG TABLET PO PRN (14:55)
--- NOTE | 2017-10-15 14:55 | NUR ---
PRN Clonidine Pt complains of sweating palms, chills and anxiety. Pt administered medication per MD order with pt tolerating well. Will continue to monitor, support and encourage according to plan of care.
--- NOTE | 2017-10-15 15:55 | NUR ---
PRN Clonidine Pt states his anxiety and sweats have ceased. Will continue to monitor, support and encourage according to plan of care.
[2017-10-15 16:30] VITALS: BP 152/101
--- NOTE | 2017-10-15 16:30 | NUR ---
CIWA 10 Pt is tremulous, diaphoretic, anxious and restless. Pt with complaints of anxiety, chills and sweats. Will continue to monitor, support and encourage according to plan of care.
--- NOTE | 2017-10-15 19:11 | NUR ---
End of Shift Utility Service Worker provided report on 52 year old male admitted to [facility] on 10/10/17 for medical management of ETOH withdrawals. Pt endorse NKA, full code and regular diet. Denies any PMH with a PPH of insomnia. Pt with no reported history of seizures. Pt is currently on an Ativan taper with last CIWA 10. Pt was administered Clonidine(anxiety, chills) for PRN medications. Pt is isolative and withdrawn to self. Pt isolates in room. A/O x4 and able to makes needs known. Linear thought process and clear speech pattern. Pt is anxious and restless and tremulous, with complaints of chills and sweats. Bed in low position with wheels locked and side rails up x2.
--- NOTE | 2017-10-15 19:30 | NUR ---
Start of Shift Patient Received. Patient is noted in the activities room participating in a group meeting. Per endorsement, patient continues on a modified Ativan taper. He was noted with elevated blood pressure and received PRN Clonidine with medication endorsed to be effective. Last noted CIWA 10. All needs attended to promptly. Will endorse to continue plan of care as ordered.
[2017-10-15] MEDS ORDERED: HYDROXYZINE PAMOATE 25 MG CAPSULE PO PRN (20:30)
[2017-10-15 20:37] VITALS: BP 147/95
[2017-10-15] MEDS: GABAPENTIN 300 MG CAPSULE PO SCH (20:38)
[2017-10-15] MEDS: TRAZODONE 100 MG TABLET PO SCH (20:38)
[2017-10-16 00:20] VITALS: BP 121/76
[2017-10-16 04:26] VITALS: BP 117/65
[2017-10-16] MEDS: PANTOPRAZOLE SODIUM 40 MG TABLET.DR PO SCH (06:38)
--- NOTE | 2017-10-16 07:12 | NUR ---
End of Shift Patient is in bed with eyes closed. Breathing even and non labored. Patient has completed a modified Ativan taper. No PRN medications administered. Last noted CIWA 15. He was noted with increased anxiety and restlessness. Ordered medication was noted to be effective. He was noted to sleep a total of 9 hours. All needs attended to promptly. Will endorse to continue plan of care as ordered.
[2017-10-16 08:00] VITALS: BP 131/87
--- NOTE | 2017-10-16 08:10 | NUR ---
START OF SHIFT: Received Pt A/O X 4. He presents with anxious mood and restricted affect. He reports anxiety and restlessness. He has completed Ativan taper. CIWA 7. Offered PRN Vistaril for anxiety but states he would like to see if he can manage without medication. Educated him on deep breathing exercises to ease anxiety.He states he slept well and has a good appetite. Encouraged group attendance to improve coping skills and prevent relapse. Will continue to monitor and offer support.
[2017-10-16] MEDS: FOLIC ACID 1 MG TABLET PO SCH (08:46)
[2017-10-16] MEDS: MULTIVITAMINS,THERAPEUTIC TABLET PO SCH (08:46)
[2017-10-16] MEDS: THIAMINE HCL 100 MG TABLET PO SCH (08:46)
[2017-10-16 12:00] VITALS: BP 140/93
--- NOTE | 2017-10-16 12:10 | NUR ---
CIWA 6 He reports anxiety and restlessness.
[2017-10-16] MEDS ORDERED: TRAZ150T75 PO (14:27)
[2017-10-16] MEDS ORDERED: HYDR-3895 PO (14:27)
[2017-10-16] MEDS ORDERED: GABA-534 PO (14:27)
[2017-10-16] MEDS ORDERED: CLON0.1T14 PO (14:27)
[2017-10-16 16:00] VITALS: BP 148/93
--- NOTE | 2017-10-16 18:48 | NUR ---
END OF SHIFT: Pt completed Ativan taper yesterday. Last CIWA 6. He reports some anxiety but states it was manageable. He attended groups and interacted with peers. He is scheduled for discharge tomorrow in am. Will pass shift report to oncoming night nurse.
--- NOTE | 2017-10-16 19:30 | NUR ---
Start of Shift Endorsement received from day nurse. Pt admitted on 10/10/17 for medically managedwithdrawal/detox from ETOH. Pt is listed as a full code with NKA's and on a regular diet. Pt has completed their 5 day Ativan taper on 07/15/17 and to be d/c'd to home in am. Pt assessed in where he appears anxious, hyperactive with racing thoughts, excellent eye contact. Pt with c/o "some anxiety" requesting PRN anxiety med with evening rounds. Denies any other s/sx's of w/d, no HI/SI. Full safety measures in place with bed locked and in lowest position, call ferrell within reach and frequent rounding
[2017-10-16 20:00] VITALS: BP 143/94
--- NOTE | 2017-10-16 20:00 | NUR ---
Evening Rounds CIWA score 6, aeb anxiety, hyperactivity, agitation, difficulty sleeping, increased emotional amplitude
[2017-10-16] MEDS: TRAZODONE 100 MG TABLET PO SCH (20:27)
[2017-10-16] MEDS: GABAPENTIN 300 MG CAPSULE PO SCH (20:28)
[2017-10-16] MEDS: DICYCLOMINE HCL 20 MG TABLET PO PRN (20:28)
--- NOTE | 2017-10-16 20:28 | NUR ---
PRN Med Vistaril 25mg PO given for anxiety, and Bentyl given for stomach/abdominal cramping, 08/15. Will continue to monitor and reassess in 1 hour
--- NOTE | 2017-10-16 21:28 | NUR ---
PRN Reassessment Vistaril 25mg PO given for anxiety, and Bentyl given for stomach/abdominal cramping, 08/15, 1 hour prior. At present pt is resting, RR 14, even and nonlabored. Meds effective.
[2017-10-17] VITALS: BP 115/78
--- NOTE | 2017-10-17 | NUR ---
Midnight Rounds VS's obtained and stable. COWS and CIWA deferred r/t pt somnalance. Will continue to monitor and promptly attend to all s/sx's distress or w/d.
[2017-10-17 04:00] VITALS: BP 113/73
--- NOTE | 2017-10-17 04:00 | NUR ---
0400 Rounds VS's obtained and stable. COWS and CIWA deferred r/t pt somnalance. Will continue to monitor and promptly attend to all s/sx's distress or w/d.
[2017-10-17] MEDS: PANTOPRAZOLE SODIUM 40 MG TABLET.DR PO SCH (06:55)
--- NOTE | 2017-10-17 07:15 | NUR ---
End of Shift Endorsement given to day nurse. Pt admitted on 10/10/17 for medically managed withdrawal/detox from ETOH. Pt is listed as a full code with NKA's and on a regular diet. Pt has completed their 5 day Ativan taper on 07/15/17 and to be d/c'd to home today. Pt presented as anxious and agitated, worried with piercing eye contact. Sole c/o anxiety, but other symptoms of w/d exhibited were fine tremors, anhedonia, depression, fatigue. Pt received Vistaril and Bentyl as PRNS during eveing. Last CIWA was 6 at 2000 hours. Pt slept for 10 hours, with 1046 intake. Full safety measures remain in place with bed locked and in lowest position, siderails up x 2 and frequent rounding
--- NOTE | 2017-10-17 07:30 | NUR ---
Start of shift note; Received report from night nurse. Patient is a 52 year old male admitted on 10/10/17 for ETOH withdrawal. Patient was placed on a 5 day Ativan taper, completed treatment without any adverse reactions. Patient received PRN Vistaril and Bentyl last night, both noted to be effective per night nurse. Patient is medically cleared for discharge today to be transferred to [facility]. Patient appears anxious and nervous about upcoming discharge, intermittent sweats noted, patient reported difficulty falling asleep last night. Educated patient regarding the importance of continuation of sobriety and compliance to post discharge IOP treatment, patient verbalized understanding. Patient is motivated to continue sobriety. All safety measures secured. Will continue to monitor patient.
[2017-10-17 08:00] VITALS: BP 131/85
--- NOTE | 2017-10-17 08:00 | NUR ---
[facility] assessment; Patient is AOX4, presented with anxiety, appears nervous, intermittent sweats noted, difficulty falling asleep, muscle cramps and agitation. Patient finished his 5 day Ativan taper.
[2017-10-17] MEDS: MULTIVITAMINS,THERAPEUTIC TABLET PO SCH (08:16)
[2017-10-17] MEDS: THIAMINE HCL 100 MG TABLET PO SCH (08:16)
[2017-10-17] MEDS: FOLIC ACID 1 MG TABLET PO SCH (08:16)
--- NOTE | 2017-10-17 09:28 | NUR ---
Discharge note; Patient is medically cleared for discharge to be transferred to [facility] to continue sobriety. All valuables, belongings, medications and prescriptions given to patient. Patient denies S/I and H/I. Patient completed treatment without any adverse reactions. Patient left the facility in a stable condition. Met all needs.
== END 2017-10-17 09:28 | disposition home or self-care (01) | DRG 894 ==
LOC: SRC 16:28
PROVIDERS: ADMIT Internal Medicine; ATTEND Family Medicine Addiction Medicine
PROC: HZ2ZZZZ Detoxification Services for Substance Abuse Treatment (ICD-10-PCS; principal; 2017-10-10)
PROC: HZ41ZZZ Group Counseling for Substance Abuse Treatment, Behavioral (ICD-10-PCS; 2017-10-11)
DX: F10.230 Alcohol dependence with withdrawal, uncomplicated (principal); Y90.9 Presence of alcohol in blood, level not specified; E87.6 Hypokalemia; Z81.1 Family history of alcohol abuse and dependence; Y90.0 Blood alcohol level of less than 20 mg/100 ml; F32.9 Major depressive disorder, single episode, unspecified; F17.210 Nicotine dependence, cigarettes, uncomplicated
CPT/HCPCS: 36415; 70030-TC; 71045; 80307; 83690; 83735; 84443; 85025; 85610; 86592; 86705; 86803; 87340; 87806; A4663; G0480; J3411; Q0162